=== PATIENT | male | born 1985 | race African-American/Black ===

== ENCOUNTER 2020-12-09 18:08 | Emergency (ER) | payer SELFPAY ==
[~2020-12-09 18:08] MED LIST: NO MEDICATIONS
== END 2020-12-09 18:25 | disposition left against medical advice (07) | DRG 951 ==
LOC: ED 18:08 → LWOBS 18:25
DX: Z53.21 Procedure and treatment not carried out due to patient leaving prior to being seen by health care provider (principal)

== ENCOUNTER 2021-06-02 14:14 | Emergency (ER) | payer MEDICAID ==
[~2021-06-02] VITALS: Ht 188 cm; Wt 90.0 kg
[2021-06-02 15:58] VITALS: BP 146/93
== END 2021-06-02 16:07 | disposition home or self-care (01) ==
LOC: ED 14:14
DX: M25.571 Pain in right ankle and joints of right foot (principal); I10 Essential (primary) hypertension; W22.8XXA Striking against or struck by other objects, initial encounter; Y93.89 Activity, other specified; Y92.89 Other specified places as the place of occurrence of the external cause; Y99.0 Civilian activity done for income or pay

== ENCOUNTER 2022-10-20 18:46 | Emergency (ER) | payer MEDICAID ==
[~2022-10-20] VITALS: Ht 180.3 cm; Wt 106.0 kg
[2022-10-20 19:12] VITALS: BP 153/99
[2022-10-20 20:26] LABS: URINE BILIRUBIN - DIPSTICK NEGATIVE (NEGATIVE); URINE BLOOD DIPSTICK NEGATIVE (NEGATIVE); URINE CLARITY CLEAR; URINE COLOR YELLOW; URINE GLUCOSE - DIPSTICK NEGATIVE (NEGATIVE); URINE KETONE TRACE mg/dL (NEGATIVE); URINE LEUK ESTERASE NEGATIVE (Negative); URINE NITRITE - DIPSTICK NEGATIVE (Negative); URINE PROTEIN - DIPSTICK TRACE mg/dL (NEG-TRACE); URINE SPECIFIC GRAVITY >=1.030; URINE UROBILINOGEN - DIPSTICK 0.2 E.U./dL (0.2)
[2022-10-20 20:34] LABS: BASO% 0.4 % (0-3); HEMATOCRIT 48.5 % (39.0-50.0); HEMOGLOBIN 16.3 g/dl (14.0-18.0); IMMATURE GRANULOCYTES 0.1 % (0.0-5.0); LYMPH% 25.8 % (15-41); MEAN CELL VOLUME 89.8 fL CALC (80.0-100.0); MEAN CORPUSCULAR HGB 30.2 pG CALC (26.0-32.0); MEAN CORPUSCULAR HGB CONC 33.6 g/dL CAL (32.0-36.0); MONO% 5.1 % (2-13); NEUT# 6.44 thou/uL (1.82-7.42); NEUT% 67.6 % (42-76); RED BLOOD COUNT 5.4 mill/uL (4.70-6.10)
[2022-10-20 21:27] VITALS: BP 153/99
[2022-10-20] MEDS ORDERED: METHOCARBAMOL500 MG PO (21:36)
[2022-10-20] MEDS ORDERED: IBUPROFEN600 MG PO (21:36)
== END 2022-10-20 21:40 | disposition home or self-care (01) ==
LOC: ED 18:46
PROVIDERS: Family Medicine
DX: M54.9 Dorsalgia, unspecified (principal); I10 Essential (primary) hypertension